=== PATIENT | male | born 1995 | race Caucasian/White ===

== ENCOUNTER 2017-11-29 22:05 | Emergency (ER) | payer OTHER ==
[~2017-11-29] VITALS: Ht 170.2 cm; Wt 90.7 kg
== END 2017-11-30 00:07 | disposition home or self-care (01) ==
LOC: ER 22:05
DX: S00.03XA Contusion of scalp, initial encounter (principal); Y04.2XXA Assault by strike against or bumped into by another person, initial encounter
CPT/HCPCS: 99283

== ENCOUNTER → 2020-04-01 | Outpatient (CLI) | payer OTHER | LOC: LAB SHORT 16:16 → LAB EV 16:16 | DX: L08.9 Local infection of the skin and subcutaneous tissue, unspecified (principal) | CPT/HCPCS: 87070; 87077; 87147; 87186; 87205 ==

== ENCOUNTER → 2023-04-09 | Outpatient (CLI) | payer OTHER ==
[2023-04-11 01:09] LABS: CHLAMYDIA TRACHOMATIS, NAA Negative (Negative)
== END | disposition home or self-care (01) ==
LOC: LAB 09:35 → LAB SHORT 09:35
PROVIDERS: Physician Assistant
DX: N50.812 Left testicular pain (principal)
CPT/HCPCS: 87086; 87491; 87591

== ENCOUNTER → 2023-08-30 | Outpatient (CLI) | payer OTHER ==
[2023-08-30 14:42] LABS: BASOPHILS ABSOLUTE AUTO 0.08 K/mm3 (0.00-0.23); BASOPHILS PERCENT AUTO 1 % (0-2); EOSINOPHILS ABSOLUTE AUTO 0.14 K/mm3 (0.00-0.68); EOSINOPHILS PERCENT AUTO 2 % (0-6); Hemoglobin 16.8 g/dL (13.5-17.5); IMMATURE GRAN ABSOLUTE AUTO 0.08 K/mm3 (0.00-0.10); IMMATURE GRAN PERCENT AUTO 1 % (0-1); LYMPHOCYTES ABSOLUTE AUTO 2.11 K/mm3 (0.84-5.20); LYMPHOCYTES PERCENT AUTO 26 % (21-46); MONOCYTES ABSOLUTE AUTO 0.88 K/mm3 (0.16-1.47); MONOCYTES PERCENT AUTO 11 % (4-13); Mean Corpuscular HGB 30.1 pg (26.0-34.0); Mean Corpuscular HGB Conc 34.3 g/dL (31.5-36.5); Mean Corpuscular Volume 88 fL (80-100); Mean Platelet Volume 8.7 fL (9.1-12.4); NEUTROPHILS ABSOLUTE AUTO 4.79 K/mm3 (1.96-9.15); NEUTROPHILS PERCENT AUTO 59 % (41-73); Platelet Count 321 K/mm3 (150-400); RDW Coefficient Variation 12.9 % (11.7-14.2); RDW Standard Deviation 40.9 fL (35.1-46.3); Red Blood Cell Count 5.58 M/mm3 (4.30-5.90); White Blood Cell Count 8.08 K/mm3 (4.00-11.30)
[2023-08-30 14:47] LABS: Albumin, Blood 4.2 g/dL (3.4-5.0); Albumin/Globulin Ratio 1.1 (0.8-1.8); Bilirubin, Total 0.3 mg/dL (0.1-1.0); Bun/Creatinine Ratio 11.5 (12.0-20.0); Calcium, Blood 9.4 mg/dL (8.5-10.1); Creatinine, Blood 1.22 mg/dL (0.60-1.20); Total Protein, Blood 8.2 g/dL (6.4-8.2)
== END | disposition home or self-care (01) ==
LOC: LAB 14:31 → LAB SHORT 14:31
PROVIDERS: Physician Assistant
DX: R10.31 Right lower quadrant pain (principal)
CPT/HCPCS: 80053; 85025

== ENCOUNTER 2023-09-07 13:35 | Emergency (ER) | payer OTHER ==
[~2023-09-07] VITALS: Ht 172.7 cm; Wt 113.4 kg
[2023-09-07 14:15] LABS: BASOPHILS ABSOLUTE AUTO 0.06 K/mm3 (0.00-0.23); BASOPHILS PERCENT AUTO 1 % (0-2); EOSINOPHILS ABSOLUTE AUTO 0.14 K/mm3 (0.00-0.68); EOSINOPHILS PERCENT AUTO 1 % (0-6); Hematocrit 44.5 % (37.0-53.0); Hemoglobin 15.4 g/dL (13.5-17.5); IMMATURE GRAN ABSOLUTE AUTO 0.03 K/mm3 (0.00-0.10); IMMATURE GRAN PERCENT AUTO 0 % (0-1); LYMPHOCYTES ABSOLUTE AUTO 2.39 K/mm3 (0.84-5.20); LYMPHOCYTES PERCENT AUTO 22 % (21-46); MONOCYTES ABSOLUTE AUTO 0.86 K/mm3 (0.16-1.47); MONOCYTES PERCENT AUTO 8 % (4-13); Mean Corpuscular HGB 30.1 pg (26.0-34.0); Mean Corpuscular HGB Conc 34.6 g/dL (31.5-36.5); Mean Corpuscular Volume 87 fL (80-100); Mean Platelet Volume 8.6 fL (9.1-12.4); NEUTROPHILS ABSOLUTE AUTO 7.21 K/mm3 (1.96-9.15); NEUTROPHILS PERCENT AUTO 67 % (41-73); Platelet Count 325 K/mm3 (150-400); RDW Coefficient Variation 12.5 % (11.7-14.2); RDW Standard Deviation 39.6 fL (35.1-46.3); Red Blood Cell Count 5.11 M/mm3 (4.30-5.90); White Blood Cell Count 10.69 K/mm3 (4.00-11.30)
[2023-09-07 14:34] LABS: Bun/Creatinine Ratio 12.5 (12.0-20.0); Calcium, Blood 9.2 mg/dL (8.5-10.1); Creatinine, Blood 1.2 mg/dL (0.60-1.20); Globulin, Blood 4.1 g/dL (2.2-4.0); Potassium, Blood 3.7 mmol/L (3.5-5.5); Total Protein, Blood 8.1 g/dL (6.4-8.2)
[2023-09-07 15:14] LABS: Source, Urine Clean Catch
[2023-09-07 15:18] LABS: Appearance, Urine Clear (Clear); Bilirubin, Urine Neg (Neg); Blood, Urine 4+ (Neg); Color, Urine Yellow (P-Yellow); Glucose Qualitative, Urine Neg (Neg); Ketones, Urine 3+ (Neg); Leukocyte Esterase, Urine Neg (Neg); Nitrite, Urine Neg (Neg); Protein, Urine 1+ (Neg); Urobilinogen, Urine NORM (Normal)
[2023-09-07 15:29] LABS: Calcium Oxalate Crystals Few /hpf
[2023-09-07 15:30] LABS: Bacteria Rare /hpf; Squamous Epithelial Cells Not Seen /hpf (Few); White Blood Cells, Urine 0-2 /hpf (0-5)
[2023-09-07] MEDS ORDERED: OXYC5 PO (16:44)
[2023-09-07] MEDS ORDERED: IBUP600 PO (16:44)
[2023-09-07] MEDS ORDERED: ACET500 PO (16:44)
[2023-09-07 16:45] VITALS: BP 147/76
== END 2023-09-07 17:00 | disposition home or self-care (01) ==
LOC: ER 13:35
PROVIDERS: Student in an Organized Health Care Education/Training Program
DX: N13.2 Hydronephrosis with renal and ureteral calculous obstruction (principal)
CPT/HCPCS: 80053; 81001; 83690; 85025; 96372; 99284-25; J1885